=== PATIENT | male | born 1985 | race Caucasian/White ===

== ENCOUNTER 2017-11-07 09:29 | Observation (INO) | payer OTHER ==
[2017-11-07 09:50] VITALS: BMI 25.7
--- NOTE | 2017-11-07 10:31 | PDOC ---
History of Present Illness - General Chief Complaint: Syncope/Near Syncope Stated Complaint: SYNCOPY Time Seen by Provider: 11/07/17 09:49 History Source: Patient - History of Present Illness Initial Comments: 11/07/17 11:08 32 y.o. male with no reported PMH presents after a witnessed syncopal episode with 3 minute period of unresponsiveness. Patient states he was standing outside smoking a cigarette when he passed out with head trauma and LOC. Denies any pre-syncope chest pain, shortness of breath, visual changes or ams. Notes h/o of previous syncopal episode with 10-15 seconds of cyanosis and eye rolling with immediate responsiveness. Patient had subsequent equivocal medical evaluation. Currently c/o headache. Family h/o of paternal heart disease and no family h/o early cardiac . Past History - Past Medical History Allergies/Adverse Reactions: Allergies Allergy/AdvReac Type Severity Reaction Status Date / Time No Known Allergies Allergy Unverified 11/07/17 09:50 Home Medications: Ambulatory Orders NK [No Known Home Medication] 11/07/17 COPD: No - Suicide/Smoking/Psychosocial Hx Smoking History: Current every day smoker Have you smoked in the past 12 months: No Number of Cigarettes Smoked Daily: 10 Information on smoking cessation initiated: No Hx Alcohol Use: No Drug/Substance Use Hx: No Substance Use Type: None Review of Systems - Review of Systems Constitutional: No: Chills, Fever HEENTM: No: Recent change in vision Respiratory: No: Shortness of Breath Cardiac (ROS): No: Chest Pain *Physical Exam - Vital Signs Last Vital Signs Temp Pulse Resp BP Pulse Ox 97.4 F L 82 18 169/87 100 11/07/17 09:30 11/07/17 09:30 11/07/17 09:30 11/07/17 09:30 11/07/17 09:30 - Physical Exam General Appearance: Yes: Nourished, Appropriately Dressed HEENT: positive: EOMI, MARIA DE JESUS, Other (5 cm L sided occipital lesion) Respiratory/Chest: positive: Lungs Clear Cardiovascular: positive: S1, S2 Gastrointestinal/Abdominal: positive: Normal Bowel Sounds, Soft Extremity: positive: Normal Capillary Refill, Normal Inspection, Pelvis Stable Integumentary: positive: Normal Color, Dry, Warm Neurologic: positive: Fully Oriented, Alert ED Treatment Course - LABORATORY CBC & Chemistry Diagram: 11/08/17 06:22 11/08/17 06:22 - RADIOLOGY Radiology Studies Ordered: Category Date Time Status CERVICAL SPINE CT W/O CONTR [CT] Stat CT Scan 11/07/17 09:[address] WITHOUT CONTRAST [CT] Stat CT Scan 11/07/17 09:49 Ordered CHEST PA & LAT [RAD] Stat Radiology 11/07/17 09:49 Ordered Medical Decision Making - Medical Decision Making 11/07/17 11:17 32 y.o. male presents following witnessed syncopal episode with head trauma. CT Head and C-spine pending. C-spine precautions in place. CT Head negative for acute bleed, C-spine negative for fracture/dislocation. Given patient's LOC and lack of prodrome, will suggest inpatient admission for further evaluation of syncope. Laceration repair with 14 cranial laureen. EKG shows NSR (HR 74), no deviations, normal intervals, no delta waves, dagger Q waves making clinical suspicion of cardiac etiologies of Brugada, HOCM, WPW less likely. Non-ischemic EKG Patient admitted to observation. Will continue to monitor while in ED. *DC/Admit/Observation/Transfer Diagnosis at time of Disposition: Syncope - Discharge Dispostion Disposition: HOME Condition at time of disposition: Stable Admit: Yes - Referrals - Patient Instructions - Post Discharge Activity
[2017-11-07 11:23] LABS: BASO % 0.3 % (0-2.0); EOS % 0.6 % (0-4.5); HEMATOCRIT 43.1 % (35.4-49); HEMOGLOBIN 14.6 GM/dL (11.7-16.9); LYMPH % 5.8 % (8-40); MCH 30.7 pg (25.7-33.7); MEAN CELL VOLUME 90.3 fl (80-96); MEAN PLT VOLUME 9.2 fl (7.5-11.1); MONO % 11.8 % (3.8-10.2); NEUT % 81.5 % (42.8-82.8); PLATELET COUNT 123 K/MM3 (134-434); RBC 4.77 M/mm3 (4.00-5.60); RDW 13.5 % (11.9-15.9); WHITE BLOOD COUNT 6.1 K/mm3 (4.0-10.0)
--- NOTE | 2017-11-07 11:43 | PDOC ---
Attending Attestation - Resident Resident Name: Cora Stone - ED Attending Attestation I have performed the following: I have examined & evaluated the patient, The case was reviewed & discussed with the resident, I agree w/resident's findings & plan, Exceptions are as noted - HPI HPI: 11/07/17 14:34 The patient is a 32 year old female with a significant PMH of multiple episodes of previous syncope who presents to the emergency department via EMS with a headache s/p witnessed syncopal episode shortly before arrival. The patient reports he was smoking a cigarette when he passed out suddenly and lost consciousness for about 2 minutes. +head strike with laceration. He denies any presyncopal chest pain, shortness of breath, visual or sensory changes. The patients notes that the patients previous syncopal episodes have occured in the setting of nausea, and resolved in less than 10 seconds with associated eye rolling and cyanosis. Family history is pertinent for heart disease on the fathers side. Allergies: NKA - Physicial Exam PE: 11/07/17 12:44 GENERAL: Awake, alert, and fully oriented, in no acute distress HEAD: No signs of trauma EYES: PERRLA, EOMI, sclera anicteric, conjunctiva clear ENT: Auricles normal inspection, hearing grossly normal, nares patent, oropharynx clear without exudates. Moist mucosa NECK: Normal ROM, supple, no lymphadenopathy, JVD, or masses LUNGS: Breath sounds equal, clear to auscultation bilaterally. No wheezes, and no crackles HEART: Regular rate and rhythm, normal S1 and S2, no murmurs, rubs or gallops ABDOMEN: Soft, nontender, normoactive bowel sounds. No guarding, no rebound. No masses EXTREMITIES: Normal range of motion, no edema. No clubbing or cyanosis. No cords, erythema, or tenderness NEUROLOGICAL: Normal speech, cranial nerves intact, negative pronator drift, 5/ 5 strength in all 4 extremities, normal sensation to light touch in all 4 extremities, normal cerebellar exam, normal gait, normal reflexes and tone SKIN: Warm, Dry, normal turgor, no rashes or lesions noted. - Medical Decision Making 11/07/17 12:42 32-year-old male with multiple episodes of previous syncope presents with a syncopal episode today and head laceration due to the fall.. Vitals initially remarkable for hypertension, however blood pressure on my exam in the 130s systolic over 80s. Exam is completely normal. Presentation is concerning given the lack of prodrome and reported loss of consciousness for 2 minutes. Previous episodes of syncope do not sound benign as reported episodes of apnea and the patient becoming cyanotic. We will obtain a CT head and C-spine given head strike and loss of consciousness. Head laceration will require stapling. Recommended admission to patient given length of LOC and minimal prodrome, he would like to think about it. 11/07/17 12:44 Patient has agreed to be admitted to the hospital for further observation for syncope. Sign out given to Dr. Escudero Case discussed in detail with admitting physician including history, physical exam and ancillary studies. Admitting physician has assumed care for the patient, will follow all pending diagnostics and will complete the evaluation and treatment. Heart Score/ECG Review #1 11/07/17 12:41 Twelve-lead EKG was performed and reviewed by me. Normal sinus rhythm, rate 74. Normal axis and intervals. No ST elevations or T-wave inversions. No delta waves , Dagger Q waves
[2017-11-07 11:59] LABS: ALBUMIN 3.9 g/dl (3.4-5.0); ANION GAP 7 (8-16); BILIRUBIN,TOTAL 0.6 mg/dL (0.2-1.0); BLOOD UREA NITROGEN 24 mg/dL (7-18); CALCIUM 8.9 mg/dL (8.5-10.1); CHLORIDE 105 mmol/L (98-107); CO2 30 mmol/L (21-32); GLUCOSE,RANDOM 97 mg/dL (74-106); POTASSIUM 4.4 mmol/L (3.5-5.1); SGOT/AST 21 U/L (15-37); SGPT/ALT 31 U/L (12-78); SODIUM 142 mmol/L (136-145); TOT PROT 6.9 g/dl (6.4-8.2)
[2017-11-07 12:02] LABS: ALK PHOS 59 U/L (45-117)
[2017-11-07] MEDS ORDERED: LIDOCAINE HCL 2% (20ML MULTI-DOSE VIAL) NR ONE (12:45)
[2017-11-07 14:24] LABS: URINE APPEARANCE CLEAR; URINE BILIRUBIN NEGATIVE (NEGATIVE); URINE BLOOD NEGATIVE (NEGATIVE); URINE COLOR STRAW; URINE GLUCOSE (UA) NEGATIVE (NEGATIVE); URINE KETONE NEGATIVE (NEGATIVE); URINE LEUK ESTERASE NEGATIVE (NEGATIVE); URINE NITRITE NEGATIVE (NEGATIVE); URINE PROTEIN NEGATIVE (NEGATIVE); URINE UROBILINOGEN NEGATIVE mg/dL (0.2-1.0)
--- NOTE | 2017-11-07 15:11 | EKG ---
Test Reason : Blood Pressure : / mmHG Vent. Rate : 074 BPM Atrial Rate : 074 BPM P-R Int : 148 ms QRS Dur : 092 ms QT Int : 396 ms P-R-T Axes : 068 074 058 degrees QTc Int : 439 ms NORMAL SINUS RHYTHM NORMAL ECG NO PREVIOUS ECGS AVAILABLE Confirmed by MD PARUL, CHELY ([id number]) on 11/07/2017 3:11:34 PM Referred By: Confirmed By:CHELY TERAN MD
--- NOTE | 2017-11-07 16:00 | HP ---
Admitting History and Physical - Admission Chief Complaint: syncope History of Present Illness: This is a 32 year old male with no past medical history admitted to the ED after syncopal episode. The patient was at work, he was finishing smoking his cigarette, he felt "off" after, lightheaded and hot. He thought to himself he should kneel down and before he could blacked out and woke with EMS. The event was witnessed and record reflects he was unresponsive for a few minutes and hit his head. The last time the patient had a syncopal episode it was at home in the setting of dehydration and nausea. He reports having increased stress in his life and began smoking 14 months ago. He has had no changes to bowel, urine , vision, exercise. 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 History of Recent Travel: No Home Medications - Allergies Allergies/Adverse Reactions: Allergies Allergy/AdvReac Type Severity Reaction Status Date / Time No Known Allergies Allergy Unverified 11/07/17 09:50 - Home Medications Home Medications: Ambulatory Orders NK [No Known Home Medication] 11/07/17 Family Disease History - Family Disease History Family Disease History: Heart Disease: Father Review of Systems - Review of Systems Constitutional: reports: No Symptoms Eyes: reports: No Symptoms HENT: reports: No Symptoms Neck: reports: No Symptoms Cardiovascular: reports: No Symptoms Respiratory: reports: No Symptoms Gastrointestinal: reports: No Symptoms Genitourinary: reports: No Symptoms Musculoskeletal: reports: No Symptoms Integumentary: reports: No Symptoms Neurological: reports: Syncope, Other (lightheadedness) Endocrine: reports: No Symptoms Hematology/Lymphatic: reports: No Symptoms Psychiatric: reports: No Symptoms Physical Examination Vital Signs: Vital Signs Temperature 98.3 F 11/07/17 14:06 Pulse Rate 79 11/07/17 14:06 Respiratory Rate 18 11/07/17 14:06 Blood Pressure 106/69 11/07/17 14:06 O2 Sat by Pulse Oximetry (%) 100 11/07/17 14:06 Constitutional: Yes: No Distress Eyes: Yes: Conjunctiva Clear HENT: Yes: Atraumatic Neck: Yes: Supple, Trachea Midline Cardiovascular: Yes: Regular Rate and Rhythm, S1, S2 Respiratory: Yes: Regular, CTA Bilaterally Gastrointestinal: Yes: Normal Bowel Sounds, Soft Musculoskeletal: Yes: WNL Extremities: Yes: WNL Edema: No Labs: CBC, BMP 11/07/17 10:11 11/07/17 11:10 Imaging - Results Chest X-ray: Report Reviewed (Head/cervical spine CT: negative for acute pathology) Cat Scan: Report Reviewed Assessment/Plan Assessment: 32 year old male admitted with syncope Plan: 1. Syncope/ LOC - No signs of infectious etiology - Echo - Carotid doppler - Head ct negative - MRI per neurology - Telemetry monitoring, r/o arrhythmia - Neurology consulted 2. Thrombocytopenia - Will trend 3. Dehydration - Start NS x1L 4. Smoking - Pt says he will quit without aids 5. DVT - OOB ambulatory Visit type - Emergency Visit Emergency Visit: Yes ED Registration Date: 11/07/17 Care time: The patient presented to the Emergency Department on the above date and was hospitalized for further evaluation of their emergent condition. - New Patient This patient is new to me today: Yes Date on this admission: 11/07/17 - Critical Care Critical Care patient: No
[2017-11-07] MEDS ORDERED: SODIUM CHLORIDE 1,000 ML IV SCH (16:30)
--- NOTE | 2017-11-07 19:23 | CONSULT ---
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 The first time he had gastroenteritis with nausea, vomiting and diarrhea and fainted in the bathroom. He fainted again when his fe tried to help him of the floor and a third time when the EMT's tried to help him up. A cardiology eval was unremarkable and he was told he was dehydrated. Over the years he will occasionally feel briefly lightheaded when he stands up quickly or squats under heavy weights, holding his breath, while weightlifting. Today, at work, he was smoking a cigarette, talking to a colleague, when he experienced lightheadedness and a flushed, hot feeling. He thought he needed to lay down but did not before his "eyes rolled back" and he had LOC. Rapidly reoriented but had headache and bleeding from the occiput. In ER BP's were 110/60. CT of head (reviewed) shows normal intracranial contents. GABBY: Right high occipital laceration (stapled). No Battles signs. No blood in ear canal. NEURO: MS/speech: Normal CN II-XII: Min Right ptosis. R pupil 6mm L 5mm reactive. Otherwise normal without Nystagmus. No tongue biting. Motor: No drift or tremor. Normal strength, bulk, tone and reflexes. Downgoing toes. Coord: No FTN dystaxia Sensory: Normal. Romberg negative. Gait: Normal. IMP: Normal neurological exam. Syncope. Probably on an orthostatic/vasovagal basis. SUGGEST: Check orthostatic BP's. Agree with cardiac monitoring. Cardiology consultation. Keep well hydrated. Out patient Neuro f/u, EEG if desired. Thank you very much, Mark Oliveira MD
--- NOTE | 2017-11-08 00:06 | CON.CARD ---
Consult Consult Specialty:: cardiology Reason for Consultation:: syncope - History of Present Illness History of Present Illness: Mr. Cruz is a 32 year old man with PMHx of syncope, cigarettes since 2015, who is now admitted to the ED after a syncopal episode. The patient was at work; he was finishing smoking a cigarette, when he felt "off" after lightheaded and hot. He knelt down and before he blacked out, apparently hitting his head,and awoke with EMS. The event was witnessed and record reflects he was unresponsive for a few minutes. The last time the patient had a syncopal episode it was at home in the setting of dehydration and nausea. He reports having increased stress in his life. He has had no changes to bowel, urine, vision, exercise. 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 History of Recent Travel: No Home Medications - Allergies Allergies/Adverse Reactions: Allergies Allergy/AdvReac Type Severity Reaction Status Date / Time No Known Allergies Allergy Unverified 11/07/17 09:50 - Home Medications Home Medications: Ambulatory Orders NK [No Known Home Medication] 11/07/17 Family Disease History - Family Disease History Family Disease History: Heart Disease: Father Vital Signs: Vital Signs Temperature 98.9 F 11/07/17 18:08 Pulse Rate 72 11/07/17 18:08 Respiratory Rate 20 11/07/17 18:08 Blood Pressure 114/78 11/07/17 18:08 O2 Sat by Pulse Oximetry (%) 100 11/07/17 16:17 - Other Data Labs, Other Data: CBC, BMP 11/07/17 10:11 11/07/17 11:10 Troponin, BNP 11/07/17 11:10 Troponin I < 0.02 Troponin, BNP 11/07/17 11:10 Troponin I < 0.02 Problem List - Problems (1) Syncope Assessment/Plan: orthostatic vital signs. EKG: normal sinus rhythm; normal study. F/u on telemetry. ECHO for LVEF, valve status. BUN 24/Cr 1.0; PO and IV hydration. TSH. Code(s): R55 - SYNCOPE AND COLLAPSE (2) Smokes cigarettes Assessment/Plan: encourage cessation. Code(s): F17.210 - NICOTINE DEPENDENCE, CIGARETTES, UNCOMPLICATED (3) Thrombocytopenia Assessment/Plan: mildly reduced platelet count; f/u level. Code(s): D69.6 - THROMBOCYTOPENIA, UNSPECIFIED
[2017-11-08 07:24] LABS: BASO % 0.5 % (0-2.0); EOS % 1.6 % (0-4.5); HEMATOCRIT 41.7 % (35.4-49); HEMOGLOBIN 13.9 GM/dL (11.7-16.9); LYMPH % 20.3 % (8-40); MCHC 33.3 g/dl (32.0-35.9); MEAN CELL VOLUME 90.3 fl (80-96); MEAN PLT VOLUME 9.4 fl (7.5-11.1); MONO % 16.7 % (3.8-10.2); NEUT % 60.9 % (42.8-82.8); PLATELET COUNT 112 K/MM3 (134-434); RBC 4.62 M/mm3 (4.00-5.60); RDW 13.8 % (11.9-15.9); WHITE BLOOD COUNT 3.2 K/mm3 (4.0-10.0)
[2017-11-08] MEDS ORDERED: ACETAMINOPHEN 325 MG TABLET (FP) PO PRN (07:37)
[2017-11-08 08:30] LABS: CHLORIDE 107 mmol/L (98-107); POTASSIUM 4.2 mmol/L (3.5-5.1); SODIUM 143 mmol/L (136-145)
[2017-11-08 08:54] LABS: ALBUMIN 3.7 g/dl (3.4-5.0); ALK PHOS 53 U/L (45-117); ANION GAP 8 (8-16); BILIRUBIN,TOTAL 0.8 mg/dL (0.2-1.0); BLOOD UREA NITROGEN 20 mg/dL (7-18); CALCIUM 8.7 mg/dL (8.5-10.1); CO2 28 mmol/L (21-32); GLUCOSE,RANDOM 90 mg/dL (74-106); SGOT/AST 15 U/L (15-37); SGPT/ALT 26 U/L (12-78); TOT PROT 6.6 g/dl (6.4-8.2)
--- NOTE | 2017-11-08 09:53 | PN ---
Progress Note, Physician History of Present Illness: Mr. Cruz is a 32 year old man with PMHx of syncope, cigarettes since 2016, who is now admitted to the ED after a syncopal episode. The patient was at work; he was finishing smoking a cigarette, when he felt "off" after lightheaded and hot. He knelt down and before he blacked out, apparently hitting his head,and awoke with EMS. The event was witnessed and record reflects he was unresponsive for a few minutes. The last time the patient had a syncopal episode it was at home in the setting of dehydration and nausea. He reports having increased stress in his life. He has had no changes to bowel, urine, vision, exercise. - Current Medication List Current Medications: Active Medications Acetaminophen (Tylenol -) 650 mg PO Q4H PRN PRN Reason: PAIN OR FEVER Last Admin: 11/08/17 09:18 Dose: 650 mg - Objective Vital Signs: Vital Signs Temperature 98.5 F 11/08/17 05:51 Pulse Rate 60 11/08/17 06:44 Respiratory Rate 20 11/08/17 05:51 Blood Pressure 133/82 11/08/17 06:44 O2 Sat by Pulse Oximetry (%) 100 11/08/17 00:17 Labs: CBC, BMP 11/08/17 06:22 11/08/17 06:22
--- NOTE | 2017-11-08 10:24 | EKG ---
Test Reason : Blood Pressure : / mmHG Vent. Rate : 067 BPM Atrial Rate : 067 BPM P-R Int : 150 ms QRS Dur : 092 ms QT Int : 398 ms P-R-T Axes : 070 075 062 degrees QTc Int : 420 ms NORMAL SINUS RHYTHM WITH SINUS ARRHYTHMIA NORMAL ECG WHEN COMPARED WITH ECG OF 07-NOV-2017 09:52, NO SIGNIFICANT CHANGE WAS FOUND Confirmed by LYN BARNES, KATHRINE ([id number]) on 11/08/2017 10:24:31 AM Referred By: Yoana CONSTANTINO Confirmed By:KATHRINE NICHOLSON MD
--- NOTE | 2017-11-08 11:42 | PN ---
Progress Note, Physician - Current Medication List Current Medications: Active Medications Acetaminophen (Tylenol -) 650 mg PO Q4H PRN PRN Reason: PAIN OR FEVER Last Admin: 11/08/17 09:18 Dose: 650 mg - Objective Vital Signs: Vital Signs Temperature 98.6 F 11/08/17 10:00 Pulse Rate 72 11/08/17 10:00 Respiratory Rate 18 11/08/17 10:00 Blood Pressure 123/60 11/08/17 10:00 O2 Sat by Pulse Oximetry (%) 97 11/08/17 08:00 Labs: CBC, BMP 11/08/17 06:22 11/08/17 06:22 Problem List - Problems (1) Syncope Assessment/Plan: orthostatic vital signs. EKG: normal sinus rhythm; normal study. F/u on telemetry. ECHO for LVEF, valve status. BUN 24/Cr 1.0; PO and IV hydration. TSH. Stress treedmill ECHO today. Code(s): R55 - SYNCOPE AND COLLAPSE (2) Smokes cigarettes Assessment/Plan: encourage cessation; pt says he quit for 8 years, but started again. He says this time he will stop permenantly.. Code(s): F17.210 - NICOTINE DEPENDENCE, CIGARETTES, UNCOMPLICATED (3) Thrombocytopenia Assessment/Plan: mildly reduced platelet count; f/u level. Code(s): D69.6 - THROMBOCYTOPENIA, UNSPECIFIED
[2017-11-08 15:25] VITALS: BP 107/52; PULSE 74; TEMP 98.4
--- NOTE | 2017-11-08 16:44 | DS ---
Physical Exam: SUBJECTIVE: Patient seen and examined. He c.o CAVAZOS this am to laceration site. No acute issues or arrhythmias overnight OBJECTIVE: Vital Signs Period Temp Pulse Resp BP Sys/Olson Pulse Ox Last 24 Hr 98.4 F-99.4 F 59-100 14-20 99-138/44-82 97-100 PE Neuro: alert, awake, cn 2-12intact, occipital laceration dried blood and laureen Pulm: CTAB CV: S1 s2 rrr no mrg Abd: s nt nd +bs Ext: warm no le edema Laboratory Results - last 24 hr 11/08/17 11/08/17 11/08/17 06:22 06:22 06:22 WBC 3.2 L D RBC 4.62 Hgb 13.9 Hct 41.7 MCV 90.3 MCH 30.0 MCHC 33.3 RDW 13.8 Plt Count 112 L MPV 9.4 Neutrophils % 60.9 D Lymphocytes % 20.3 D Monocytes % 16.7 H Eosinophils % 1.6 D Basophils % 0.5 Sodium 143 Potassium 4.2 Chloride 107 Carbon Dioxide 28 Anion Gap 8 BUN 20 H Creatinine 1.0 Creat Clearance w eGFR > 60 Random Glucose 90 Calcium 8.7 Total Bilirubin 0.8 D AST 15 D ALT 26 Alkaline Phosphatase 53 Total Protein 6.6 Albumin 3.7 Triglycerides 100 Cholesterol 100 Total LDL Cholesterol 40 HDL Cholesterol 46 TSH 2.15 HOSPITAL COURSE: Date of Admission:11/07/17 Date of Discharge: 11/08/17 Minutes to complete discharge: 37 Discharge Summary Reason For Visit: SYNCOPE Current Active Problems Smokes cigarettes (Acute) Syncope (Acute) Thrombocytopenia (Acute) Hospital Course: Initial Hospital Course: Briefly, this 32 year old male with no past medical history admitted to the ED after syncopal episode. The patient was at work, he finished smoking his cigarette, he felt "off" after, lightheaded and hot. He thought to himself he should kneel down and before he could blacked out and woke with EMS. The event was witnessed and record reflects he was unresponsive for a few minutes and hit his head. The last time the patient had a syncopal episode it was at home in the setting of dehydration and nausea. He reports having increased stress in his life and began smoking 14 months ago. Prior to that he smoked for 8 years and then stopped. Hospital Course: Patient was seen by neurology, episode likely vasovagal Evaluated by cardiology ECHO nml lv size and fxn, and treadmill stress negative Pt noted to have thrombocytopenia, no clear etiology. To follow up with pcp ( clinic info enclosed) for staple and cbc follow up Counseled pt on smoking cessation PT aware and agrees to above plan Condition: Stable - Instructions Diet, Activity, Other Instructions: Please return to the ED for any new, persistent, or worsening symptoms. Follow up with your PCP in 1 week (referral made to our clinic) Please have them evaluate and remove your laureen and repeat CBC to check platelets Follow up with neurology 1-2 weeks for EEG Follow up with cardiology in 3 weeks for continued work up Referrals: Reji Eaton MD [Staff Physician] - 1 Week (laureen removal and repeat CBC to evaluate platelet count ) Mark Oliveira MD [Staff Physician] - 2 Weeks (EEG ) Estevan Acosta MD [Staff Physician] - 3 Weeks (further outpt follow up ) Disposition: HOME - Home Medications Comprehensive Discharge Medication List: Ambulatory Orders NK [No Known Home Medication] 11/07/17 This patient is new to me today: No Emergency Visit: Yes ED Registration Date: 11/07/17 Care time: The patient presented to the Emergency Department on the above date and was hospitalized for further evaluation of their emergent condition. Critical Care patient: No - Discharge Referral Referred to [facility] Med P.C[facility] No
== END 2017-11-08 17:04 | disposition home or self-care (01) ==
LOC: JER 09:29 → JERBED 12:41 → J4S 14:45
PROVIDERS: ADMIT Internal Medicine; ATTEND Nurse Practitioner Acute Care
PROC: 0HQ0XZZ Repair Scalp Skin, External Approach (ICD-10-PCS; principal; 2017-11-07)
PROC: 3E0337Z Introduction of Electrolytic and Water Balance Substance into Peripheral Vein, Percutaneous Approach (ICD-10-PCS; 2017-11-07)
DX: R55 Syncope and collapse (principal); S01.01XA Laceration without foreign body of scalp, initial encounter; W18.39XA Other fall on same level, initial encounter; Y93.89 Activity, other specified; Y92.89 Other specified places as the place of occurrence of the external cause; D69.6 Thrombocytopenia, unspecified; E86.0 Dehydration; F17.210 Nicotine dependence, cigarettes, uncomplicated
CPT/HCPCS: 36415; 70450-TC; 71046-TC; 72125-TC; 80053; 80061; 81003; 82550; 82553; 83721; 84443; 84484; 85025; 93005; 93010; 93306-TC; 93351; 93880-TC; 99285-25; G0378

== ENCOUNTER 2017-11-14 08:56 | Emergency (ER) | payer OTHER ==
[2017-11-14 09:24] VITALS: BP 115/61; PULSE 67; TEMP 98.6; BMI 25.7
--- NOTE | 2017-11-14 09:52 | PDOC ---
Suture Removal/Wound Check HPI - History of Present Illness Chief Complaint: Suture/Staple Removal(Here) Stated Complaint: LAUREEN REMOVAL Time Seen by Provider: 11/14/17 09:43 History Source: Yes: Patient Exam Limitations: Yes: No Limitations Treated at: [facility] ED Date of Last ED visit: 11/07/17 - Previous ED Treatment Type of procedure performed on last visit: Yes: Laceration Repair Tetanus Immunization: Yes: Up to Date Antibiotics Prescribed: No Past History - Travel Traveled outside of the country in the last 30 days: No Close contact w/someone who was outside of country & ill: No - Past Medical History Allergies/Adverse Reactions: Allergies Allergy/AdvReac Type Severity Reaction Status Date / Time No Known Allergies Allergy Unverified 11/14/17 09:21 Home Medications: Ambulatory Orders NK [No Known Home Medication] 11/07/17 COPD: No - Immunization History Immunization Up to Date: Yes - Suicide/Smoking/Psychosocial Hx Smoking History: Former smoker Have you smoked in the past 12 months: Yes Number of Cigarettes Smoked Daily: 0 If you are a former smoker, when did you quit?: last week Information on smoking cessation initiated: No Hx Alcohol Use: No Drug/Substance Use Hx: No Substance Use Type: None Suture Removal/Wound Check PE - Physical Exam Laceration/Wound Check Symptoms: reports: None Current Severity Level: None Maximum Severity Level: None Pain Localization: None *Review of Systems - Review of Systems Constitutional: No: Symptoms Reported HEENTM: No: Symptoms Reported Respiratory: No: Symptoms reported Musculoskeletal: No: Symptoms Reported Integumentary: No: Symptoms Reported, Erythema Neurological: No: Symptoms reported, Paresthesia, Tingling, Tremors, Unsteady Gait, Ataxia, Dizziness Hematologic/Lymphatic: No: Symptoms Reported All Other Systems: Reviewed and Negative Medical Decision Making - Medical Decision Making 11/14/17 09:53 13 laureen removed without difficulty there is dried blood with scabbing, once the scab is removed there is mild bleeding which was controlled. I have encouraged patient not to wash or scratching area for at least the next 48 hours. Return if any excessive bleeding. *DC/Admit/Observation/Transfer Diagnosis at time of Disposition: Removal of laureen - Discharge Dispostion Disposition: HOME Condition at time of disposition: Stable Admit: No - Referrals - Patient Instructions Printed Discharge Instructions: DI for Suture Removal Additional Instructions: PLease monitor area for any excessive bleeding if bleeding return to ER, please do not wash or scratching area for the next 48 hours, tried to leave area as dry as possible for as long as possible - Post Discharge Activity Forms/Work/School Notes: Back to Work
== END 2017-11-14 09:56 | disposition home or self-care (01) ==
LOC: JERFT 08:56
DX: Z48.02 Encounter for removal of sutures (principal)
CPT/HCPCS: 99281-25